=== PATIENT | male | born 1945 | race African-American/Black ===

== ENCOUNTER 2016-06-02 21:52 | Emergency (ER) | payer MEDICARE ==
[2016-06-02 22:42] VITALS: BP 162/74
--- NOTE | 2016-06-02 23:09 | ER Document Report ---
ED Medical Screen (RME) - General Stated Complaint: DIALYSIS PORT PROBLEMS Time seen by provider: 23:07 Mode of Arrival: Ambulatory Information source: Patient Notes: 70-year-old male presents to ED for probable disconnection of his peritoneal port. The site has been covered with a sterile dressing needs to be evaluated. He is still getting hemodialysis 3 times a week but is being trained on the peritoneal dialysis. His dialysis are Tuesday and Tuesday. I have greeted and performed a rapid initial assessment of this patient. A comprehensive ED assessment and evaluation of the patient, analysis of test results and completion of medical decision making process will be conducted by an additional ED providers. TRAVEL OUTSIDE OF THE [place] IN LAST 30 DAYS: No - Related Data Allergies/Adverse Reactions: No Known Allergies Allergy (Verified 04/22/13 20:31) Past Medical History - Past Medical History Cardiac Medical History: Reports: Hx Hypertension Endocrine Medical History: Reports: Hx Diabetes Mellitus Type 1 Musculoskeltal Medical History: Reports Hx Arthritis, Reports Hx Musculoskeletal Trauma Traumatic Medical History: Reports: Hx Fractures - Immunizations Immunizations up to date: Yes Hx Diphtheria, Pertussis, Tetanus Vaccination: Yes - 2009 Physical Exam - Vital signs Vitals: Temp Pulse Resp BP Pulse Ox 98.3 F 64 16 162/74 H 97 06/02/16 22:40 06/02/16 22:40 06/02/16 22:40 06/02/16 22:40 06/02/16 22:40 Course - Vital Signs Vital signs: Temp Pulse Resp BP Pulse Ox 98.3 F 64 16 162/74 H 97 06/02/16 22:40 06/02/16 22:40 06/02/16 22:40 06/02/16 22:40 06/02/16 22:40
== END 2016-06-02 23:19 | disposition left against medical advice (07) ==
LOC: ER 21:52
DX: Z49.02 Encounter for fitting and adjustment of peritoneal dialysis catheter (principal); I10 Essential (primary) hypertension; E10.9 Type 1 diabetes mellitus without complications; Z53.20 Procedure and treatment not carried out because of patient's decision for unspecified reasons
CPT/HCPCS: 99281

== ENCOUNTER 2019-04-16 08:12 | Inpatient (IN) | payer MEDICARE ==
[2019-04-16 09:17] LABS: ABSOLUTE BASOPHILS # (AUTO) 0.1 10^3/uL (0.0-0.2); ABSOLUTE EOSINOPHILS # (AUTO) 0.1 10^3/uL (0.0-0.6); ABSOLUTE LYMPHOCYTES (AUTO) 0.6 10^3/uL (0.5-4.7); ABSOLUTE MONOCYTES (AUTO) 0.3 10^3/uL (0.1-1.4); ABSOLUTE NEUT (AUTO) 5.9 10^3/uL (1.7-8.2); BASOPHILS % (AUTO) 1.4 % (0-2); EOSINOPHILS % (AUTO) 1.3 % (0-6); HEMATOCRIT 30.1 % (37.9-51.0); HEMOGLOBIN 10.1 g/dL (13.5-17.0); LYMPHOCYTES % (AUTO) 8.8 % (13-45); MEAN CORPUSCULAR HEMOGLOBIN 29.9 pg (27.0-33.4); MEAN CORPUSCULAR HGB CONC 33.5 g/dL (32.0-36.0); MEAN CORPUSCULAR VOLUME 89 fl (80-97); PLATELET COUNT 177 10^3/uL (150-450); RED BLOOD COUNT 3.38 10^6/uL (4.35-5.55); RED CELL DISTRIBUTION WIDTH 14.1 % (11.5-14.0); SEGMENTED NEUTROPHILS % (AUTO) 84.5 % (42-78); TOTAL CELLS COUNTED % (AUTO) 100 %; WHITE BLOOD COUNT 6.9 10^3/uL (4.0-10.5)
--- NOTE | 2019-04-16 09:17 | ER Document Report ---
ED General - General Chief Complaint: Altered Mental Status Stated Complaint: ALTERED MENTAL STATUS Time Seen by Provider: 04/16/19 08:32 TRAVEL OUTSIDE OF THE [place] IN LAST 30 DAYS: No - HPI Notes: Patient is a 73-year-old male who presents to the emergency department for evaluation of altered mental status. His and EMS are primary historians, although they are poor historians as well. Evidently the patient got out of bed at approximately 420 this morning. His heard him get out of bed, but she went back to sleep. She came back downstairs after 5 and found him on the floor. She states she believes he must have fallen. She tried to get him up, but he did not speak, and she could not get him up, so she went up to start the car. She evidently called other family members, her son came, and they were able to load him into the car. Patient's and son both admit that he never really said any intelligible words to them, which is very different from his baseline. They brought him to dialysis, and they recommended based on his evaluation that he come to the emergency department for further evaluation. The patient denies any pain, but cannot give me any information in regards to what is happened recently. - Related Data Allergies/Adverse Reactions: No Known Allergies Allergy (Verified 04/22/13 20:31) Past Medical History - General Information source: Relative, Emergency Med Personnel - Social History Smoking Status: Former Smoker Chew tobacco use (# tins/day): No Frequency of alcohol use: None Drug Abuse: None Family History: CAD, DM, Hyperlipidemia, Hypertension, Malignancy Patient has suicidal ideation: No Patient has homicidal ideation: No - Past Medical History Cardiac Medical History: Reports: Hx Hypertension Endocrine Medical History: Reports: Hx Diabetes Mellitus Type 2 Renal/ Medical History: Reports: Hx End Stage Renal Disease - Tuesday dialysis Musculoskeletal Medical History: Reports Hx Arthritis, Reports Hx Muscul oskeletal Trauma Traumatic Medical History: Reports: Hx Fractures - Immunizations Immunizations up to date: Yes Hx Diphtheria, Pertussis, Tetanus Vaccination: Yes - 2009 Review of Systems - Review of Systems -: Yes ROS unobtainable due to patient's medical condition Physical Exam - Vital signs Vitals: Pulse Resp BP Pulse Ox 72 18 200/82 H 98 04/16/19 08:20 04/16/19 08:20 04/16/19 08:20 04/16/19 08:20 - Notes Notes: This is a 73-year-old male who appears his stated age, lying comfortably and calmly in the bed, in no acute distress. Head is normocephalic and atraumatic, pupils are equal round, reactive to light. Oral mucosa is moist. Heart is regular, lungs are clear to auscultation bilaterally. Abdomen soft, nontender, normoactive bowel sounds. AV fistula noted in left upper arm with palpable thrill. Extremities without cyanosis, clubbing, edema. Skin is warm and dry. Patient is awake and alert, but disoriented to person, place, time. He moves all 4 extremities spontaneously. He has no gross facial asymmetry. No pronator drift. Sensation appears to be intact to all 4. Course - Re-evaluation Re-evalutation: 04/16/19 09:17 Patient presents to the emergency department for evaluation. He certainly has altered mental status. Even if he was asymptomatic before his fall at this morning, he did not speak to anyone, so I am concerned that if in case this is a CVA, he is well outside the window for TPA. He may have indeed woken with the symptoms but did not communicate with anyone. Laboratory investigations were ordered. Patient is stable besides being hypertensive at this time. I am not surprised by his hypertension given the fact that he did not have dialysis this morning. Awaiting lab work and further evaluation. Patient is stable at this time, we will continue to monitor. 04/16/19 11:21 Patient still with significant expressive and receptive aphasia. He remains hypertensive, hydralazine ordered. His CT scan was unremarkable. Laboratory investigations failed to reveal anything besides a mild hyper kalemia and a hyperglycemia. This is likely secondary to him not taking his medications. He was given insulin, which would address both issues. Ultimately he needs dialyzed. I spoke with Dr. Hickey, who states that they will be able to dialyze him today. My strong suspicion is that this patient has had a CVA. His CT scan was unremarkable, and again he is outside of the window for any sort of intervention such as TPA. He is given aspirin. I spoke with Dr. Stoddard, and she will accept the patient to [facility] for further care. - Vital Signs Vital signs: Temp Pulse Resp BP Pulse Ox 72 19 200/82 H 100 04/16/19 08:20 04/16/19 08:30 04/16/19 08:20 04/16/19 09:00 - Laboratory Result Diagrams: 04/16/19 08:55 04/16/19 08:55 Laboratory results interpreted by me: 04/16/19 04/16/19 04/16/19 08:55 08:55 09:30 RBC 3.38 L Hgb 10.1 L Hct 30.1 L RDW 14.1 H Lymph % (Auto) 8.8 L Seg Neutrophils % 84.5 H Sodium 135.7 L Potassium 5.2 H Chloride 96 L BUN 67 H Creatinine 9.25 H Est GFR ( Amer) 7 L Est GFR (MDRD) Non-Af 6 L Glucose 460 H* Alkaline Phosphatase 141 H Urine Protein 100 H Urine Glucose (UA) >=500 H Urine Blood SMALL H - Diagnostic Test Radiology reviewed: Image reviewed, Reports reviewed Radiology results interpreted by me: 04/16/19 11:[address] 04/16/19 00:00 IMPRESSION: No acute intracranial abnormality. EVIDENCE OF ACUTE STROKE: NO. - EKG Interpretation by Me Additional EKG results interpreted by me: 04/16/19 11:22 Sinus mechanism with a rate of 74 bpm. Normal axis and intervals. No acute ST changes concerning for ischemia or infarction. No change from prior study of July 14, 2014 Discharge - Discharge Clinical Impression: Altered mental status, Expressive aphasia, Receptive aphasia, Hyperglycemia, Hyperkalemia Condition: Stable Disposition: ADMITTED INPATIENT Admitting Provider: Dr. Stoddard Unit Admitted: [facility]
--- NOTE | 2019-04-16 09:17 | RADIOLOGY REPORT (SQ) ---
EXAM DESCRIPTION: CT HEAD WITHOUT COMPLETED DATE/TIME: 04/16/2019 8:50 am REASON FOR STUDY: ams COMPARISON: CT of the head without contrast from 04/02/2009. TECHNIQUE: Axial images acquired through the brain without intravenous contrast. Images reviewed wi th bone, brain and subdural windows. Additional sagittal and coronal reconstructions were generated. Images stored on PACS. All CT scanners at this facility use dose modulation, iterative reconstruction, and/or weight based d osing when appropriate to reduce radiation dose to as low as reasonably achievable (ALARA). [facility]: Dose Right [facility]: CareDose [facility]: Dose Right [facility]: Teradose 4D [facility]: [employer] RADIATION DOSE: CT Rad equipment meets quality standard of care and radiation dose reduction techniq ues were employed. CTDIvol: 53.2 - 55.2 mGy. DLP: 2182 mGy-cm. LIMITATIONS: None. FINDINGS: The confluent areas of hypoattenuation within the supratentorial periventricular and subco rtical white matter could represent the sequela of chronic microvascular ischemia. There is no acute intracranial hemorrhage, vascular territorial infarct, extra-axial fluid collection, mass effect or midline shift. There is no effacement of the cerebral sulci or basal subarachnoid cisterns. The gra y-white matter differentiation is preserved. The caliber the ventricles is concordant with the degree of sulcation. The globes are aphakic. The orbits are intact. The paranasal sinuses are clear. There is no fractu re of the calvarium. IMPRESSION: No acute intracranial abnormality. EVIDENCE OF ACUTE STROKE: NO. COMMENT: Quality ID # [id number]: Final reports with documentation of one or more dose reduction techniques (e.g., Automated exposure control, adjustment of the mA and/or kV according to patient size, use of iterative reconstruction technique) TECHNICAL DOCUMENTATION: JOB ID: [id number] 2010 [employer]- All Rights Reserved Reading location - IP/workstation name: [email or web address]
[2019-04-16 09:30] LABS: INTERNATIONAL RATION (INR) 1.02; PROTHROMBIN TIME 13.4 SEC (11.4-15.4)
[2019-04-16 09:44] LABS: ALBUMIN 4.2 g/dL (3.5-5.0); ALKALINE PHOSPHATASE 141 U/L (38-126); ANION GAP 13 (5-19); ASPARTATE AMINO TRANSFERASE 22 U/L (17-59); BILIRUBIN,DIRECT 0.1 mg/dL (0.0-0.4); BILIRUBIN,TOTAL 0.6 mg/dL (0.2-1.3); BLOOD UREA NITROGEN 67 mg/dL (7-20); CALCIUM 9.3 mg/dL (8.4-10.2); CARBON DIOXIDE 27 mmol/L (22-30); CHLORIDE 96 mmol/L (98-107); CREATINE KINASE 166 U/L (55-170); POTASSIUM 5.2 mmol/L (3.6-5.0); TOTAL PROTEIN 7.1 g/dL (6.3-8.2)
[2019-04-16 09:55] LABS: CREATINE KINASE MB 3.95 ng/mL (<4.55)
[2019-04-16 10:01] LABS: GLUCOSE 460 mg/dL (75-110); TROPONIN I 0.078 ng/mL
[2019-04-16 10:05] LABS: APPEARANCE,URINE CLEAR; BILIRUBIN,URINE NEGATIVE (NEGATIVE); COLOR,URINE STRAW; GLUCOSE, URINE >=500 mg/dL (NEGATIVE); KETONES,URINE NEGATIVE (NEGATIVE); LEUKOCYTE ESTERASE,URINE NEGATIVE (NEGATIVE); NITRITE,URINE NEGATIVE (NEGATIVE); PROTEIN,URINE 100 mg/dL (NEGATIVE); URINE SPECIFIC GRAVITY 1.009; UROBILINOGEN,URINE NEGATIVE mg/dL (<2.0)
[2019-04-16] MEDS ORDERED: INSULIN REG, HUMAN 100 UNIT/ML 3 ML VIAL (PYX) IV ONE (10:52)
[2019-04-16] MEDS ORDERED: HYDRALAZINE HCL INJ/PF 20 MG/1 ML SDV IV ONE (11:09)
[2019-04-16] MEDS ORDERED: ASPIRIN 325 MG TABLET PO ONE (11:10)
[2019-04-16] MEDS ORDERED: LABETALOL HCL INJ 20 MG/4 ML DISP.SYRIN IV PRN (13:09)
--- NOTE | 2019-04-16 13:21 | EKG REPORT ---
SEVERITY:- BORDERLINE ECG - SINUS RHYTHM PROBABLE LEFT ATRIAL ABNORMALITY : Confirmed by: Jimmy Don MD 16-Apr-2019 13:20:15
[2019-04-16] MEDS ORDERED: NORMAL SALINE 1000 ML 1,000 ML IV PRN (13:47)
[2019-04-16] MEDS ORDERED: DEXTROSE 50%-WATER 25 GM/50 ML DISP.SYRIN IV PRN ×2 (14:04)
[2019-04-16] MEDS ORDERED: GLUCAGON,HUMAN RECOMB 1 MG INJ IM PRN (14:04)
[2019-04-16] MEDS ORDERED: DEXTROSE 40% GEL 15 GM TUBE PO PRN ×2 (14:04)
--- NOTE | 2019-04-16 14:04 | PDOC H&P ---
History of Present Illness Admission Date/PCP: 04/16/19 11:36 CAROLYNN RIVAS MD Patient complains of: Confusion, altered mental status and weakness started at 4 AM today History of Present Illness: CARLENE MENDEZ is a 73 year old male Presents to the emergency room with complaints of being found on the floor this a.m. at around 4 AM. His apparently found him on the floor. She did not know witness what happened. He had gone out with some other family members last night, his sons and he said he was fine with a dropped him back home. It is unclear what happened in the interim until he was found on the floor. His also said he had some urinary incontinence at the time. He does have end-stage renal disease but still make some urine. He remained confused and was unable to follow instructions. The family still managed to get him down to dialysis though as well scheduled for dialysis at 6 AM. He was brought to the emergency department from the dialysis center for further evaluation. On arrival to the ED was found to be hypotensive with a systolic blood pressure of more than 230 Past Medical History Cardiac Medical History: Reports: Hypertension Pulmonary Medical History: Reports: None Endocrine Medical History: Reports: Diabetes Mellitus Type 2 Renal/ Medical History: Reports: End Stage Renal Disease - Tuesday dialysis Musculoskeltal Medical History: Reports: Arthritis Skin Medical History: Reports: None Past Surgical History Past Surgical History: Reports: None Social History Smoking Status: Former Smoker Electronic Cigarette use?: No - Advance Directive Resuscitation Status: Full Code Family History Family History: CAD, DM, Hyperlipidemia, Hypertension, Malignancy Parental Family History Reviewed: Yes - Not pertinent Children Family History Reviewed: Yes Sibling(s) Family History Reviewed.: Yes Medication/Allergy Allergies/Adverse Reactions: No Known Allergies Allergy (Verified 04/22/13 20:31) Review of Systems Constitutional: ABSENT: chills, night sweats Nose, Mouth, and Throat: ABSENT: headache(s), sore throat Cardiovascular: ABSENT: chest pain, dyspnea on exertion, orthropnea Neurological: PRESENT: frequent falls - Xple times as per family Psychiatric: ABSENT: anxiety, depression, homidical ideation, suicidal ideation Hematologic/Lymphatic: ABSENT: easy bleeding, easy bruising Physical Exam Vital Signs: Temp Pulse Resp BP Pulse Ox 98.8 F 78 14 189/76 H 100 04/16/19 11:37 04/16/19 11:24 04/16/19 12:02 04/16/19 12:02 04/16/19 12:02 Intake & Output 04/15/19 04/16/19 04/17/19 06:59 06:59 06:59 Weight 96.1 kg General appearance: PRESENT: no acute distress, well-developed, well-nourished Head exam: PRESENT: atraumatic Eye exam: PRESENT: PERRLA. ABSENT: nystagmus Mouth exam: PRESENT: other - bite tobias on side of tongue Neck exam: PRESENT: full ROM. ABSENT: carotid bruit, JVD, tenderness Respiratory exam: PRESENT: clear to auscultation [place], unlabored. ABSENT: rhonchi, tachypnea Cardiovascular exam: PRESENT: RRR, +S1, +S2 Pulses: PRESENT: normal carotid pulses GI/Abdominal exam: PRESENT: soft. ABSENT: tenderness Rectal exam: PRESENT: deferred Extremities exam: PRESENT: +1 edema. ABSENT: calf tenderness Musculoskeletal exam: PRESENT: ambulatory Neurological exam: PRESENT: alert, awake, other - Expressive aphasia, unable to follow commands, no definite neglect Strength appears to be intact although patient unable to follow precise instructions. ABSENT: oriented to person, oriented to place, oriented to time, oriented to situation, motor sensory deficit Skin exam: PRESENT: other - Scattered bruises Results Laboratory Results: 04/16/19 08:55 04/16/19 08:55 04/16/19 04/16/19 04/16/19 08:55 08:55 09:30 WBC 6.9 RBC 3.38 L Hgb 10.1 L Hct 30.1 L MCV 89 MCH 29.9 MCHC 33.5 RDW 14.1 H Plt Count 177 Seg Neutrophils % 84.5 H Sodium 135.7 L Potassium 5.2 H Chloride 96 L Carbon Dioxide 27 Anion Gap 13 BUN 67 H Creatinine 9.25 H Est GFR ( Amer) 7 L Glucose 460 H* Calcium 9.3 Magnesium 2.2 Total Bilirubin 0.6 AST 22 Alkaline Phosphatase 141 H Total Protein 7.1 Albumin 4.2 Urine Color STRAW Urine Appearance CLEAR Urine pH 7.0 Ur Specific [place] 1.009 Urine Protein 100 H Urine Glucose (UA) >=500 H Urine Ketones NEGATIVE Urine Blood SMALL H Urine Nitrite NEGATIVE Ur Leukocyte Esterase NEGATIVE Urine WBC (Auto) 0 Urine RBC (Auto) 5 04/16/19 04/16/19 08:55 08:55 Creatine Kinase 166 CK-MB (CK-2) 3.95 Troponin I 0.078 Impressions: Head CT 04/16/19 00:00 IMPRESSION: No acute intracranial abnormality. EVIDENCE OF ACUTE STROKE: NO. Assessment and Plan - Diagnosis (1) Acute CVA (cerebrovascular accident) Is this a current diagnosis for this admission?: Yes (2) Hypertensive emergency Is this a current diagnosis for this admission?: Yes (3) ESRD (end stage renal disease) on dialysis Is this a current diagnosis for this admission?: Yes Plan: Nephrology has been consulted for further replacement therapy (4) Type 2 diabetes mellitus, uncontrolled Is this a current diagnosis for this admission?: Yes Plan: He will be placed on SSI along with his basal insulin after review (5) Hyperkalemia Is this a current diagnosis for this admission?: Yes Plan: Secondary to ESRD. This should clear with dialysis (6) Seizure disorder as sequela of cerebrovascular accident Is this a current diagnosis for this admission?: Yes - Plan Summary Summary: Patient appears to have suffered an acute cerebrovascular event. His blood pressure was pretty elevated with a systolic over 200 on initial presentation. Although CT scan shows no acute findings this is not unusual. Patient could also have hypertensive encephalopathy however a symptoms seem to be more aligned with a CVA. According to the family he is symptoms are actually better at the time of my exam. He is obviously out of the window for TPA. He continues to have dysarthria as well as expressive aphasia. Two-dimensional echocardiogram as well as carotid Doppler studies will be obtained. Patient has been started on aspirin. We will also allow for permissive hypertension. Swallowing evalua tion will be done as per protocol and subsequently PT and OT will be obtained. Lipid panel will be checked. I also suspect the patient may have had a seizure associated with the onset of his CVA. He was found on the floor by his family and apparently also had urine incontinence. He also has bite tobias on his tongue laterally. All this point to likely associated seizures. We will go ahead and obtain an EEG and will place him on seizure precautions although I doubt that any further seizures will be seen Home medications as pending as of this time Patient has apparently fallen multiple times leading to multiple bruises Anemia is likely secondary to chronic disease. We will follow-up on H&H - Time Time Spent with patient: 35 or more minutes Medications reviewed and adjusted accordingly: Yes Anticipated discharge: Home Within: within 72 hours - Inpatient Certification Based on my medical assessment, after consideration of the patient's comorb idities, presenting symptoms, or acuity I expect that the services needed warrant INPATIENT care.: Yes Medical Necessity: Risk of Complication if Not Cared For in Hospital, Risk of Diagnosis Which Will Require Inpatient Eval/Care/Monitoring
--- NOTE | 2019-04-16 21:25 | RADIOLOGY REPORT (SQ) ---
EXAM DESCRIPTION: MRI BRAIN WITHOUT INTRAVENOUS CONTRAST CLINICAL HISTORY: Altered mental status, alteration speech, confusion, and fall. COMPARISON: CT head performed the same day TECHNIQUE: MRI of the brain was performed without intravenous contrast, in a multiplanar/multisequence format. FINDINGS: There is moderate cerebral volume loss. There is no intracranial hemorrhage, midline shift, mass effect or acute focal infarct. Scattered periventricular white matter T2 FLAIR signal hyperintensity is nonspecific, but in a pattern most compatible with chronic microvascular ischemic change. More focal area of heterogeneous appearing T2 signal hyperintensity involves the right greater than left aspect of the merlyn. There is a good shukla/white matter differentiation. Normal flow voids are seen in the intracranial arterial circulation. The ventricular system is normal. Limited evaluation of the pituitary fossa, bilateral cerebellopontine angles and bilateral IAC region appear unremarkable. IMPRESSION: No MRI evidence of acute infarct. Findings compatible with moderate cerebral volume loss and chronic microvascular ischemic change are noted. A more heterogeneous area of T2 signal hyperintensity is present within the merlyn. Although findings could represent sequela of remote infarct, this region is incompletely evaluated with noncontrast technique. Consider follow-up with contrast-enhanced exam if clinically indicated for further evaluation.
[2019-04-16] MEDS ORDERED: ATORVASTATIN CALCIUM 40 MG TABLET PO SCH (22:00)
[2019-04-16] MEDS: INSULIN REG, HUMAN 100 UNIT/ML 3 ML VIAL (PYX) SUBCUT SCH (23:00)
[2019-04-16] MEDS: NORMAL SALINE 1000 ML 1,000 ML IV PRN (23:26)
--- NOTE | 2019-04-17 00:31 | PDOC CONSULTATION ---
Consultation Consult Date: 04/16/19 Provider Consulted: BELLE ZHU Consult reason:: ESRD requiring Hemodialysis. History of Present Illness Admission Date/PCP: 04/16/19 11:36 CAROLYNN RIVAS MD History of Present Illness: CARLENE MENDEZ is a 73 year old male with history of end-stage renal disease on maintenance hemodialysis 3 times a week, diabetes mellitus type 2 and hypertension who was brought into the emergency room today after he was found to have altered mental status. The patient could not really give me any history so the history is in accordance with emergency room records. Apparently the patient was found on the floor by his around 5 AM. Patient was not very responsive. The called her son and he managed to place the patient in the car in route to [facility] for his dialysis this morning. When he presented in [facility] they were advised this bring him to the emergency room for further evaluation before even getting hemodialysis treatment. In the emergency room the patient was found to have expressive and receptive aphasia. His initial evaluation included a CT scan which was unremarkable and an MRI was also negative for any acute infarct. The patient was also hypertensive with blood pressure as high as 206/93 in the emergency room. Patient did not take any of his blood pressure medications given that the patient was supposed to go to dialysis this morning. His potassium is slightly elevated at 5.2. He has a BUN of 67 and creatinine of 9.25. I saw the patient at around 1:20 in the afternoon during dialysis treatment. Patient was awake and was trying to speak really answer questions with sense. Otherwise he denies any complaints including headache, chest pains, dizziness, shortness of breath, nausea, vomiting or diarrhea. He seems to be very stable. His blood pressure continues to be elevated. Past Medical History Cardiac Medical History: Reports: Hyperlipidemia, Hypertension-primary Endocrine Medical History: Reports: Diabetes Mellitus Type 2 Complications of Diabetes: Reports: Autonomic Neuropathy, Retinopathy Renal/ Medical History: Reports: End Stage Renal Disease - Tuesday dialysis Musculoskeltal Medical History: Reports: Arthritis Hematology Medical History: Reports Anemia of Chronic Kidney Disease Past Surgical History Past Surgical History: Reports: None Social History Information Source: [facility] Records Lives with: Spouse/Significant other Smoking Status: Former Smoker Electronic Cigarette use?: No Frequency of Alcohol Use: None Hx Recreational Drug Use: No Drugs: None - Advance Directive Resuscitation Status: Full Code Family History Family History: Chronic Kidney Disease - Brother had kidney transplant Parental Family History Reviewed: Yes Children Family History Reviewed: No Sibling(s) Family History Reviewed.: Yes Medication/Allergy Home Medications: Amlodipine Besylate [Norvasc 10 mg Tablet] 5 mg PO QPM 04/16/19 Amlodipine Besylate [Norvasc 10 mg Tablet] 10 mg PO QAM 04/16/19 Aspirin [Aspirin 81 mg Chewable Tablet] 81 mg PO DAILY 04/16/19 Atorvastatin Calcium [Lipitor 20 mg Tablet] 20 mg PO DAILY 04/16/19 Calcitriol [Rocaltrol 0.5 mcg Capsule] 0.5 mcg PO DAILY 04/16/19 Clonidine HCl [Catapres 0.1 mg Tablet] 0.15 mg PO Q12 04/16/19 Epoetin Kash [Procrit Inj 20,000 Unit/1 ml Vial (Renal)] 20,000 unit INJ ASDIR PRN 04/16/19 Ferrous Sulfate [Feosol 325 mg Tablet] 325 mg PO DAILY 04/16/19 Furosemide [Lasix 80 mg Tablet] 120 mg PO DAILY 04/16/19 Insulin Lispro [Humalog Insulin 100 Unit/1 ml 3 ml Vial] 0 unit SUBCUT .SLD SCALE 04/16/19 Metoprolol Succinate [Toprol Xl 50 mg Tab.sr] 25 mg PO Q12 04/16/19 Sodium Bicarbonate [Sodium Bicarbonate 650 mg Tablet] 650 mg PO BID 04/16/19 Allergies/Adverse Reactions: No Known Allergies Allergy (Verified 04/22/13 20:31) Review of Systems All systems: reviewed and no additional remarkable complaints except as stated Review of Systems: Constitutional: ABSENT: chills, fatigue, fever(s), headache(s), weight gain, weight loss Eyes: ABSENT: visual disturbances Ears: ABSENT: hearing changes Cardiovascular: ABSENT: chest pain, dyspnea on exertion, edema, orthropnea, palpitations Respiratory: ABSENT: cough, dyspnea, hemoptysis Gastrointestinal: ABSENT: abdominal pain, constipation, diarrhea, hematemesis, hematochezia, nausea, vomiting Genitourinary: ABSENT: dysuria, hematuria Musculoskeletal: ABSENT: joint swelling Integumentary: ABSENT: rash, wounds Neurological: ABSENT: abnormal gait,confusion, dizziness, focal weakness, numbness, syncope; patient has aphasia Psychiatric: ABSENT: anxiety, depression Endocrine: ABSENT: cold intolerance, heat intolerance, polydipsia, polyuria Hematologic/Lymphatic: ABSENT: easy bleeding, easy bruising, lymphadenopathy Physical Exam Vital Signs: Temp Pulse Resp BP Pulse Ox 98.8 F 78 14 189/76 H 100 04/16/19 11:37 04/16/19 11:24 04/16/19 12:02 04/16/19 12:02 04/16/19 12:02 Intake & Output 04/15/19 04/16/19 04/17/19 06:59 06:59 06:59 Weight 96.1 kg Vitals during dialysis: Blood pressure 191/86 pulse rate of 70, blood flow rate of 450 mL/min and dialysate flow rate of 800 mL/min Exam: General appearance: No acute distress, cooperative, well-developed, well-nou rished Head exam: PRESENT: atraumatic, normocephalic Eye exam: PRESENT: Conjunctiva [place], EOMI, PERRLA. ABSENT: conjunctival injection, scleral icterus Mouth exam: PRESENT: moist, neck supple, tongue midline Neck exam: PRESENT: full ROM. ABSENT: carotid bruit, JVD, lymphadenopathy, thyromegaly Respiratory exam: PRESENT: clear to auscultation bilaterally. ABSENT: rales, rhonchi, stridor, wheezes Cardiovascular exam: PRESENT: RRR, +S1, +S2. Grade 2/6 systolic murmur Pulses: PRESENT: normal radial pulses, normal dorsalis pedis pulses GI/Abdominal exam: PRESENT: normal bowel sounds, soft. ABSENT: guarding, mass, tenderness Rectal exam: Deferred Extremities exam: PRESENT: full ROM. ABSENT: calf tenderness, pedal edema Musculoskeletal: PRESENT: full ROM. ABSENT: deformity Neurological exam: PRESENT: alert, Awake, Oriented to person, Oriented to place, Oriented to time, reflexes normal, CN II-XII grossly intact. ABSENT: motor sensory deficit Psychiatric exam: PRESENT: appropriate affect, normal mood. ABSENT: homicidal ideation, suicidal ideation Skin exam: PRESENT: intact, dry, warm. ABSENT: rash Results Laboratory Results: 04/16/19 08:55 04/16/19 08:55 04/16/19 04/16/19 04/16/19 08:55 08:55 09:30 WBC 6.9 RBC 3.38 L Hgb 10.1 L Hct 30.1 L MCV 89 MCH 29.9 MCHC 33.5 RDW 14.1 H Plt Count 177 Seg Neutrophils % 84.5 H Sodium 135.7 L Potassium 5.2 H Chloride 96 L Carbon Dioxide 27 Anion Gap 13 BUN 67 H Creatinine 9.25 H Est GFR ( Amer) 7 L Glucose 460 H* Calcium 9.3 Magnesium 2.2 Total Bilirubin 0.6 AST 22 Alkaline Phosphatase 141 H Total Protein 7.1 Albumin 4.2 Urine Color STRAW Urine Appearance CLEAR Urine pH 7.0 Ur Specific Center 1.009 Urine Protein 100 H Urine Glucose (UA) >=500 H Urine Ketones NEGATIVE Urine Blood SMALL H Urine Nitrite NEGATIVE Ur Leukocyte Esterase NEGATIVE Urine WBC (Auto) 0 Urine RBC (Auto) 5 04/16/19 04/16/19 08:55 08:55 Creatine Kinase 166 CK-MB (CK-2) 3.95 Troponin I 0.078 Impressions: Head CT 04/16/19 00:00 IMPRESSION: No acute intracranial abnormality. EVIDENCE OF ACUTE STROKE: NO. Assessment & Plan - Diagnosis (1) Expressive aphasia Is this a current diagnosis for this admission?: Yes Plan: Although the patient's CT scan and MRI are still negative, patient's presentation is consistent with either a TIA or stroke in evolution and the patient warrants to be monitored very closely. (2) ESRD (end stage renal disease) on dialysis Is this a current diagnosis for this admission?: Yes Plan: We will do dialysis today for 3 hours, using the patient's AV fistula, with 2 potassium bath, blood flow rate of 450 mL per minute, dialysate flow rate of 800 mL per minute, ultrafiltration 2 L as tolerated, no heparin and no Procrit. Patient will be monitored throughout dialysis treatment and adjust accordingly. (3) Hypertension Is this a current diagnosis for this admission?: Yes Plan: Needs to resume home medications. (4) Hyperkalemia Is this a current diagnosis for this admission?: Yes Plan: Dialysis today. (5) Diabetes mellitus type 2 in nonobese Is this a current diagnosis for this admission?: Yes Plan: Needs to resume patient's insulin. Defer to hospitalist. - Notes Notes: Thank you very much for this consultation. We will continue to support with hemodialysis while the patient is here in the hospital. - Time Time Spent: 50 to 70 Minutes
[2019-04-17] MEDS: INSULIN REG, HUMAN 100 UNIT/ML 3 ML VIAL (PYX) SUBCUT SCH ×5 (01:55→22:37)
[2019-04-17] MEDS ORDERED: LABETALOL HCL INJ 20 MG/4 ML DISP.SYRIN IV PRN (03:39)
[2019-04-17] MEDS ORDERED: HYDRALAZINE HCL INJ/PF 20 MG/1 ML SDV IV PRN (06:30)
[2019-04-17] MEDS: AMLODIPINE BESYLATE 10 MG TABLET PO SCH (08:21)
[2019-04-17 08:58] LABS: ANION GAP 15 (5-19); CALCIUM 9.3 mg/dL (8.4-10.2); CARBON DIOXIDE 26 mmol/L (22-30); CHLORIDE 97 mmol/L (98-107); GLUCOSE 206 mg/dL (75-110)
[2019-04-17] MEDS: FUROSEMIDE 80 MG TABLET PO SCH (09:22)
[2019-04-17] MEDS: CLONIDINE HCL 0.1 MG TABLET PO SCH ×2 (09:23→22:35)
[2019-04-17] MEDS: SODIUM BICARBONATE 650 MG TABLET PO SCH ×2 (09:23→17:31)
[2019-04-17] MEDS: ASPIRIN 81 MG TABLET, CHEWABLE PO SCH (09:23)
[2019-04-17] MEDS: METOPROLOL SUCCINATE 50 MG TAB.SR.24H PO SCH ×2 (09:24→22:33)
[2019-04-17 09:28] LABS: BLOOD UREA NITROGEN 33 mg/dL (7-20); POTASSIUM 3.7 mmol/L (3.6-5.0)
[2019-04-17] MEDS ORDERED: ASPIRIN 325 MG TABLET, ENT COATED PO SCH (10:00)
--- NOTE | 2019-04-17 12:31 | PDOC PROGRESS REPORT ---
Subjective Progress Note for:: 04/17/19 Subjective:: Patient is doing very well today. He is very much improved in terms of his expressive and receptive aphasia. Today patient is able to communicate very well coherently and appropriately. He said he actually feels much better. He does not seem to have any other deficits. Reason For Visit: ALTERED MENTAL STATUS,EXPRESSIVE APHASIA,RECEPTIVE Physical Exam Vital Signs: Temp Pulse Resp BP Pulse Ox 98.2 F 70 16 188/79 H 98 04/17/19 03:13 04/17/19 08:54 04/17/19 08:54 04/17/19 08:54 04/17/19 08:54 Intake & Output 04/16/19 04/17/19 04/18/19 06:59 06:59 06:59 Intake Total 480 Output Total 2775 Balance -2295 Weight 81.9 kg Exam: General appearance: PRESENT: no acute distress, cooperative, well-developed, well-nourished Head exam: PRESENT: atraumatic, normocephalic Eye exam: PRESENT: conjunctiva pink, PERRLA. ABSENT: scleral icterus Neck exam: ABSENT: JVD Respiratory exam: PRESENT: Normal breath sounds. ABSENT: crackles, rales, rhonchi, unlabored, wheezes Cardiovascular exam: PRESENT: Regular rate rhythm -+S1, +S2. Grade 2/6 systolic murmur GI/Abdominal exam: PRESENT: normal bowel sounds, soft. ABSENT: guarding, mass, tenderness Extremities exam: ABSENT: No edema Neurological exam: PRESENT: alert, awake, oriented to person, place and time. Skin exam: PRESENT: dry, warm, Results Laboratory Results: 04/16/19 08:55 04/17/19 07:22 04/17/19 07:22 Sodium 137.5 Potassium 3.7 D Chloride 97 L Carbon Dioxide 26 Anion Gap 15 BUN 33 H D Creatinine 5.99 H Est GFR ( Amer) 11 L Glucose 206 H Calcium 9.3 04/16/19 04/16/19 04/16/19 08:55 08:55 17:47 Creatine Kinase 166 CK-MB (CK-2) 3.95 Troponin I 0.078 0.112 04/17/19 04/17/19 00:25 07:22 Creatine Kinase CK-MB (CK-2) Troponin I 0.102 0.086 Impressions: Head CT 04/16/19 00:00 IMPRESSION: No acute intracranial abnormality. EVIDENCE OF ACUTE STROKE: NO. Head MRI 04/16/19 00:00 IMPRESSION: No MRI evidence of acute infarct. Findings compatible with moderate cerebral volume loss and chronic microvascular ischemic change are noted. A more heterogeneous area of T2 signal hyperintensity is present within the merlyn. Although findings could represent sequela of remote infarct, this region is incompletely evaluated with noncontrast technique. Consider follow-up with contrast-enhanced exam if clinically indicated for further evaluation. Assessment & Plan - Diagnosis (1) Expressive aphasia Is this a current diagnosis for this admission?: Yes Plan: It appears that the patient may have an episode of TIA manifesting as expressive aphasia which is currently now improved and almost completely resolved. (2) ESRD (end stage renal disease) on dialysis Is this a current diagnosis for this admission?: Yes Plan: His next dialysis will be tomorrow. If he will stay here for what ever reason then we will dialyze him here. However the patient can be discharged [employer] marker tomorrow then he can be dialyzed at [facility] at 10:50 AM but ne eds to be on time. Discussed this with Dr. Ordonez. (3) Hypertension Is this a current diagnosis for this admission?: Yes Plan: Uncontrolled. Patient is just going to start his regular home blood pressure medications today. (4) Hyperkalemia Is this a current diagnosis for this admission?: Yes Plan: Resolved with dialysis. (5) Diabetes mellitus type 2 in nonobese Is this a current diagnosis for this admission?: Yes Plan: Suboptimally controlled. - Time Time with patient: 15-25 minutes
[2019-04-17] MEDS: NORMAL SALINE 1000 ML 1,000 ML IV PRN (14:11)
--- NOTE | 2019-04-17 15:17 | PDOC PROGRESS REPORT ---
Subjective Progress Note for:: 04/17/19 Subjective:: This is 71-year-old male who was brought in due to acute confusion and aphasia. He was admitted for possible CVA versus TIA. No acute event overnight. Patient has improved dramatically. Upon encounter this morning, he is comfortable and appears to be at his baseline mentation. He is very coherent and is AO x3. Denies weakness or numbness or tingling sensation. Reason For Visit: TIA, HYPERTENSIVE URGENCY. Physical Exam Vital Signs: Temp Pulse Resp BP Pulse Ox 98.3 F 97 13 119/91 H 100 04/17/19 12:17 04/17/19 12:17 04/17/19 12:17 04/17/19 12:17 04/17/19 12:17 Intake & Output 04/16/19 04/17/19 04/18/19 06:59 06:59 06:59 Intake Total 480 1000 Output Total 2775 Balance -2295 1000 Weight 180 lb 8.937 oz General appearance: PRESENT: no acute distress, well-developed, well-nourished Head exam: PRESENT: atraumatic, normocephalic Eye exam: PRESENT: conjunctiva pink, EOMI, PERRLA. ABSENT: scleral icterus Ear exam: PRESENT: normal external ear exam Mouth exam: PRESENT: moist, tongue midline Neck exam: ABSENT: carotid bruit, JVD, lymphadenopathy, thyromegaly Respiratory exam: PRESENT: clear to auscultation [place]. ABSENT: rales, rhonchi, wheezes Cardiovascular exam: PRESENT: RRR. ABSENT: diastolic murmur, rubs, systolic murmur Pulses: PRESENT: normal dorsalis pedis pul GI/Abdominal exam: PRESENT: normal bowel sounds, soft. ABSENT: distended, guarding, mass, organolmegaly, rebound, tenderness Rectal exam: PRESENT: deferred Extremities exam: PRESENT: full ROM. ABSENT: calf tenderness, clubbing, pedal edema Neurological exam: PRESENT: alert, awake, oriented to person, oriented to place, oriented to time, oriented to situation, CN II-XII grossly intact. ABSENT: motor sensory deficit Results Laboratory Results: 04/16/19 08:55 04/17/19 07:22 04/17/19 07:22 Sodium 137.5 Potassium 3.7 D Chloride 97 L Carbon Dioxide 26 Anion Gap 15 BUN 33 H D Creatinine 5.99 H Est GFR ( Amer) 11 L Glucose 206 H Calcium 9.3 04/16/19 04/16/19 04/16/19 08:55 08:55 17:47 Creatine Kinase 166 CK-MB (CK-2) 3.95 Troponin I 0.078 0.112 04/17/19 04/17/19 00:25 07:22 Creatine Kinase CK-MB (CK-2) Troponin I 0.102 0.086 Impressions: Head CT 04/16/19 00:00 IMPRESSION: No acute intracranial abnormality. EVIDENCE OF ACUTE STROKE: NO. Head MRI 04/16/19 00:00 IMPRESSION: No MRI evidence of acute infarct. Findings compatible with moderate cerebral volume loss and chronic microvascular ischemic change are noted. A more heterogeneous area of T2 signal hyperintensity is present within the merlyn. Although findings could represent sequela of remote infarct, this region is incompletely evaluated with noncontrast technique. Consider follow-up with contrast-enhanced exam if clinically indicated for further evaluation. Assessment and Plan - Diagnosis (1) TIA (transient ischemic attack) Is this a current diagnosis for this admission?: Yes Plan: Started on aspirin and statin. CT head is negative. MRI showed a non- definitive lesion in the pontine area. Echo and Doppler pending. (2) Expressive aphasia Is this a current diagnosis for this admission?: Yes Plan: Resolved. (3) Diabetes mellitus type 2 in nonobese Is this a current diagnosis for this admission?: Yes (4) ESRD (end stage renal disease) on dialysis Is this a current diagnosis for this admission?: Yes - Plan Summary Summary: Patient appears to have suffered an acute cerebrovascular event. His blood pressure was pretty elevated with a systolic over 200 on initial presentation. Although CT scan shows no acute findings this is not unusual. Patient could also have hypertensive encephalopathy however a symptoms seem to be more aligned with a CVA. According to the family he is symptoms are actually better at the t monico of my exam. He is obviously out of the window for TPA. He continues to have dysarthria as well as expressive aphasia. Two-dimensional echocardiogram as well as carotid Doppler studies will be obtained. Patient has been started on aspirin. We will also allow for permissive hypertension. Swallowing evaluation will be done as per protocol and subsequently PT and OT will be obtained. Lipid panel will be checked. I also suspect the patient may have had a seizure associated with the onset of his CVA. He was found on the floor by his family and apparently also had urine incontinence. He also has bite tobias on his tongue laterally. All this point to likely associated seizures. We will go ahead and obtain an EEG and will place him on seizure precautions although I doubt that any further seizures will be seen Home medications as pending as of this time Patient has apparently fallen multiple times leading to multiple bruises Anemia is likely secondary to chronic disease. We will follow-up on H&H - Time Time Spent with patient: 25-34 minutes
--- NOTE | 2019-04-17 17:27 | CDI QUERY ---
CDI Query CDI Review: Dear Provider: To better reflect your patients severity of illness, morbidity, and resource utilization Please specify and document in the Progress Notes and Discharge Summary if you are monitoring / treating / evaluating any of the following conditions: Query Clinical indicators Please clarify Acute CVA (cerebrovascular accident) TIA (transient ischemic attack) Unable to determine Other Noted in Progress Note 04/17/2019: This is 71-year-old male who was brought in due to acute confusion and aphasia. He was admitted for possible CVA versus TIA. Diagnoses List: TIA (transient ischemic attack) Summary: Patient appears to have suffered an acute cerebrovascular event.He continues to have dysarthria as well as expressive aphasia. Noted in H&P: Diagnoses List: 1) Acute CVA (cerebrovascular accident 6) Seizure disorder as sequela of cerebrovascular accident The terms probable, suspected, likely, possible or still to be ruled out may be used if you are unable to determine the exact nature of a condition. Thank you, Clinical Documentation Physician Advisors CHIN Desai RN, BSN RN [email or web address] Office [phone] Office [phone]
[2019-04-17] MEDS ORDERED: AMLODIPINE BESYLATE 10 MG TABLET PO SCH (18:00)
[2019-04-17] MEDS ORDERED: ATORVASTATIN CALCIUM 20 MG TABLET PO SCH (22:00)
[2019-04-18] MEDS: INSULIN REG, HUMAN 100 UNIT/ML 3 ML VIAL (PYX) SUBCUT SCH ×3 (08:26→17:45)
[2019-04-18] MEDS: AMLODIPINE BESYLATE 10 MG TABLET PO SCH (08:30)
[2019-04-18] MEDS: CLONIDINE HCL 0.1 MG TABLET PO SCH (10:25)
[2019-04-18] MEDS: FUROSEMIDE 80 MG TABLET PO SCH (10:26)
[2019-04-18] MEDS: SODIUM BICARBONATE 650 MG TABLET PO SCH (10:26)
[2019-04-18] MEDS: ASPIRIN 81 MG TABLET, CHEWABLE PO SCH (10:27)
[2019-04-18] MEDS: METOPROLOL SUCCINATE 50 MG TAB.SR.24H PO SCH (10:27)
[2019-04-18] MEDS ORDERED: EPOETIN ALFA-EPBX 2,000 UNIT, EPOETIN ALFA-EPBX 3,000 UNIT in SYRINGE, DISPOSABLE, 1 EACH IV PRN (10:52)
[2019-04-18] MEDS ORDERED: NORMAL SALINE 1000 ML 1,000 ML IV PRN (10:52)
[2019-04-18 12:59] LABS: CHOLESTEROL 165.51 mg/dL (0-200); TRIGLYCERIDES 54 mg/dL (<150)
[2019-04-18 13:10] LABS: DIRECT LDL 78 mg/dL (<100)
[2019-04-18 14:27] LABS: ABSOLUTE EOSINOPHILS # (AUTO) 0.2 10^3/uL (0.0-0.6); ABSOLUTE LYMPHOCYTES (AUTO) 0.9 10^3/uL (0.5-4.7); ABSOLUTE MONOCYTES (AUTO) 0.3 10^3/uL (0.1-1.4); ABSOLUTE NEUT (AUTO) 1.9 10^3/uL (1.7-8.2); BASOPHILS % (AUTO) 1.2 % (0-2); EOSINOPHILS % (AUTO) 6.8 % (0-6); HEMATOCRIT 30.5 % (37.9-51.0); HEMOGLOBIN 10.4 g/dL (13.5-17.0); LYMPHOCYTES % (AUTO) 27.6 % (13-45); MEAN CORPUSCULAR HEMOGLOBIN 30.2 pg (27.0-33.4); MEAN CORPUSCULAR HGB CONC 34.2 g/dL (32.0-36.0); MEAN CORPUSCULAR VOLUME 88 fl (80-97); MONOCYTES % (AUTO) 8.2 % (3-13); PLATELET COUNT 174 10^3/uL (150-450); RED BLOOD COUNT 3.46 10^6/uL (4.35-5.55); RED CELL DISTRIBUTION WIDTH 13.7 % (11.5-14.0); SEGMENTED NEUTROPHILS % (AUTO) 56.2 % (42-78); TOTAL CELLS COUNTED % (AUTO) 100 %; WHITE BLOOD COUNT 3.3 10^3/uL (4.0-10.5)
[2019-04-18 14:30] LABS: ANION GAP 12 (5-19); BLOOD UREA NITROGEN 53 mg/dL (7-20); CALCIUM 8.8 mg/dL (8.4-10.2); CARBON DIOXIDE 26 mmol/L (22-30); CHLORIDE 96 mmol/L (98-107); GLUCOSE 321 mg/dL (75-110)
[2019-04-18 17:43] VITALS: BP 170/69
--- NOTE | 2019-04-18 22:44 | PDOC PROGRESS REPORT ---
Subjective Progress Note for:: 04/18/19 Subjective:: I am seeing the patient during dialysis treatment this afternoon. Patient is doing very well and his dysarthria and aphasia has completely resolved. He does not have any complaints. He is tolerating dialysis well. Reason For Visit: TIA, HYPERTENSIVE URGENCY. Physical Exam Vital Signs: Temp Pulse Resp BP Pulse Ox 97.6 F 64 18 170/69 H 98 04/18/19 06:53 04/18/19 08:00 04/18/19 08:00 04/18/19 08:00 04/18/19 08:00 Intake & Output 04/17/19 04/18/19 04/19/19 06:59 06:59 06:59 Intake Total 480 2520 Output Total 2775 Balance -2295 2520 Weight 81.9 kg 83.5 kg Vitals during dialysis treatment: Blood pressure 174/94, heart rate of 65, blood flow rate of 450 mL/min and dialysate flow rate of 800 mL/min. Exam: General appearance: PRESENT: no acute distress, cooperative, well-developed, well-nourished Head exam: PRESENT: atraumatic, normocephalic Eye exam: PRESENT: conjunctiva slightly pale k, PERRLA. ABSENT: scleral icterus Neck exam: ABSENT: JVD Respiratory exam: PRESENT: Normal breath sounds. ABSENT: crackles, rales, rhonchi, unlabored, wheezes Cardiovascular exam: PRESENT: Regular rate rhythm -+S1, +S2. ABSENT: diastolic murmur, systolic murmur GI/Abdominal exam: PRESENT: normal bowel sounds, soft. ABSENT: guarding, mass, tenderness Extremities exam: ABSENT: No edema Neurological exam: PRESENT: alert, awake, oriented to person, place and time. Skin exam: PRESENT: dry, warm, Results Laboratory Results: 04/16/19 08:55 04/17/19 07:22 04/16/19 04/16/19 04/16/19 08:55 08:55 17:47 Creatine Kinase 166 CK-MB (CK-2) 3.95 Troponin I 0.078 0.112 04/17/19 04/17/19 00:25 07:22 Creatine Kinase CK-MB (CK-2) Troponin I 0.102 0.086 Impressions: Head CT 04/16/19 00:00 IMPRESSION: No acute intracranial abnormality. EVIDENCE OF ACUTE STROKE: NO. Head MRI 04/16/19 00:00 IMPRESSION: No MRI evidence of acute infarct. Findings compatible with moderate cerebral volume loss and chronic microvascular ischemic change are noted. A more heterogeneous area of T2 signal hyperintensity is present within the merlyn. Although findings could represent sequela of remote infarct, this region is incompletely evaluated with noncontrast technique. Consider follow-up with contrast-enhanced exam if clinically indicated for further evaluation. Assessment & Plan - Diagnosis (1) Expressive aphasia Is this a current diagnosis for this admission?: Yes Plan: It appears that the patient may have an episode of TIA manifesting as expressive aphasia which is currently now improved and resolved. (2) ESRD (end stage renal disease) on dialysis Is this a current diagnosis for this admission?: Yes Plan: We will do dialysis today for 3 hours, using the patient's AV fistula, with 2 potassium bath, blood flow rate of 450 mL per minute, dialysate flow rate of 800 mL per minute, ultrafiltration 2 to 2.5 L as tolerated, no heparin and Procrit with 5000 units during dialysis intravenously. Patient is being monitored during dialysis treatment by our dialysis nurse. (3) Hypertension Is this a current diagnosis for this admission?: Yes Plan: Uncontrolled. Continue home blood pressure medications. (4) Hyperkalemia Is this a current diagnosis for this admission?: Yes Plan: Resolved with dialysis. (5) Diabetes mellitus type 2 in nonobese Is this a current diagnosis for this admission?: Yes Plan: Suboptimally controlled. - Notes Notes: From nephrology standpoint patient can be discharged home safely. Patient to resume his normal dialysis schedule at [facility] next Tuesday. - Time Time with patient: 15-25 minutes
--- NOTE | 2019-04-19 00:25 | RADIOLOGY REPORT (SQ) ---
EXAM DESCRIPTION: [facility]: US CAROTID DOPPLER BILATERAL CLINICAL HISTORY: 73 years Male; Acute CVA TECHNIQUE: Grayscale and Doppler (color and pulse) ultrasound of bilateral carotid arteries and the vertebral arteries was performed. Stenosis assessment based on Carotid Artery Stenosis: Dorman-Scale and Doppler US DiagnosisSociety of Radiologists in Ultrasound Consensus Conference; Radiology, Jan 2003, Vol. 229:340-346 COMPARISON: None. FINDINGS: All velocities in cm/sec. Right carotid: Morphology: Calcific plaque at the ICA origin and ECA origin. ICA velocities: Proximal 94/12, distal 109/16 (Normal < 124/40) CCA PSV: Proximal 86, distal 110 ICA/CCA PSV ratio: 1.0 (Normal < 2.0) ECA: PSV 89 Left carotid: Morphology: Marginal calcific plaque in the distal CCA. Focal calcific plaque at the ICA origin ICA velocities: Proximal 68/11, distal 84/15 (Normal < 124/40) CCA PSV: Proximal 101, distal 98 ICA/CCA PSV ratio: 0.9 (Normal < 2.0) ECA: PSV 88 Right vertebral: Antegrade, PSV 53 Left vertebral: Antegrade, PSV 55 IMPRESSION: 1. Atherosclerosis 2. Less than 50% stenosis of the internal carotid arteries 3. Normal antegrade flow in both vertebral arteries
--- NOTE | 2019-04-19 10:58 | PDOC DISCHARGE SUMMARY ---
Impression - Admit/DC Date/PCP Admission Date/Primary Care Provider: 04/16/19 11:36 CAROLYNN RIVAS MD Discharge Date: 04/18/19 - Discharge Diagnosis (1) TIA (transient ischemic attack) Is this a current diagnosis for this admission?: Yes (2) Expressive aphasia Is this a current diagnosis for this admission?: Yes (3) Diabetes mellitus type 2 in nonobese Is this a current diagnosis for this admission?: Yes (4) ESRD (end stage renal disease) on dialysis Is this a current diagnosis for this admission?: Yes - Assessment Summary: Patient appears to have suffered an acute cerebrovascular event. His blood pressure was pretty elevated with a systolic over 200 on initial presentation. Although CT scan shows no acute findings this is not unusual. Patient could also have hypertensive encephalopathy however a symptoms seem to be more aligned with a CVA. According to the family he is symptoms are actually better at the time of my exam. He is obviously out of the window for TPA. He continues to have dysarthria as well as expressive aphasia. Two-dimensional echocardiogram as well as carotid Doppler studies will be obtained. Patient has been started on aspirin. We will also allow for permissive hypertension. Swallowing evaluation will be done as per protocol and subsequently PT and OT will be obtained. Lipid panel will be checked. I also suspect the patient may have had a seizure associated with the onset of his CVA. He was found on the floor by his family and apparently also had urine incontinence. He also has bite tobias on his tongue laterally. All this point to likely associated seizures. We will go ahead and obtain an EEG and will place him on seizure precautions although I doubt that any further seizures will be seen Home medications as pending as of this time Patient has apparently fallen multiple times leading to multiple bruises Anemia is likely secondary to chronic disease. We will follow-up on H&H - Additional Information Resuscitation Status: Full Code Discharge Activity: Activity As Tolerated, Balance Activity w/Rest Referrals: CAROLYNN RIVAS MD [Primary Care Provider] - 04/27/19 2:45 pm Prescriptions: Hydralazine HCl [Apresoline 10 mg Tablet] 10 mg PO Q8H #90 tablet Clopidogrel Bisulfate [Plavix 75 mg Tablet] 75 mg PO DAILY #30 tablet Home Medications: Amlodipine Besylate [Norvasc 10 mg Tablet] 5 mg PO QPM 04/16/19 Amlodipine Besylate [Norvasc 10 mg Tablet] 10 mg PO QAM 04/16/19 Aspirin [Aspirin 81 mg Chewable Tablet] 81 mg PO DAILY 04/16/19 Atorvastatin Calcium [Lipitor 20 mg Tablet] 20 mg PO DAILY 04/16/19 Calcitriol [Rocaltrol 0.5 mcg Capsule] 0.5 mcg PO DAILY 04/16/19 Clonidine HCl [Catapres 0.1 mg Tablet] 0.15 mg PO Q12 04/16/19 Epoetin Kash [Procrit Inj 20,000 Unit/1 ml Vial (Renal)] 20,000 unit INJ ASDIR PRN 04/16/19 Ferrous Sulfate [Feosol 325 mg Tablet] 325 mg PO DAILY 04/16/19 Furosemide [Lasix 80 mg Tablet] 120 mg PO DAILY 04/16/19 Insulin Lispro [Humalog Insulin (Lispro) 100 unit/mL] 0 unit SUBCUT .SLD SCALE 04/16/19 Sodium Bicarbonate [Sodium Bicarbonate 650 mg Tablet] 650 mg PO BID 04/16/19 Clopidogrel Bisulfate [Plavix 75 mg Tablet] 75 mg PO DAILY #30 tablet 04/18/19 Hydralazine HCl [Apresoline 10 mg Tablet] 10 mg PO Q8H #90 tablet 04/19/19 Metoprolol Succinate [Toprol Xl 50 mg Tab.sr] 50 mg PO Q12 #0 04/19/19 History of Present Illiness History of Present Illness: Admitting hospitalist's H&P: Presents to the emergency room with complaints of being found on the floor this a.m. at around 4 AM. His apparently found him on the floor. She did not know witness what happened. He had gone out with some other family members last night, his sons and he said he was fine with a dropped him back home. It is unclear what happened in the interim until he was found on the floor. His also said he had some urinary incontinence at the time. He does have end-stage renal disease but still make some urine. He remained confused and was unable to follow instructions. The family still managed to get him down to dialysis though as well scheduled for dialysis at 6 AM. He was brought to the emergency department from the dialysis center for further evaluation. On arrival to the ED was found to be hypertensive with a systolic blood pressure of more than 230. Hospital Course Hospital Course: This is 71-year-old male with ESRD on dialysis, DM 2, and HTN who was brought in due to acute confusion and aphasia. He was admitted for possible CVA versus TIA. He was started on antiplatelets and statin. Patient has improved dramatically overnight. Confusion and aphasia completely resolved and he went back to his baseline mentation. He is very coherent and is AO x3. No weakness or numbness or tingling sensation. Patient was also seen by nephrology and was also getting dialysis during this course. His blood pressures improved to the 150 systolic is lying on the high side. His metoprolol was increased to 50 mg every 12 on discharge. He will also be started on hydralazine 10 mg 3 times daily. He was counseled on logging his blood pressures and blood sugars at home and close follow-up with PCP for close titration of his antihypertensives and diabetic regimen. Physical Exam Vital Signs: Temp Pulse Resp BP Pulse Ox 97.6 F 64 18 184/75 H 98 04/18/19 16:34 04/18/19 16:34 04/18/19 16:34 04/18/19 16:34 04/18/19 16:34 Intake & Output 04/18/19 04/19/19 04/20/19 06:59 06:59 06:59 Intake Total 2520 240 Output Total 2700 Balance 2520 -2460 Weight 184 lb 1.376 oz General appearance: PRESENT: no acute distress, well-developed, well-nourished Head exam: PRESENT: atraumatic, normocephalic Eye exam: PRESENT: conjunctiva pink, EOMI, PERRLA. ABSENT: scleral icterus Ear exam: PRESENT: normal external ear exam Mouth exam: PRESENT: moist, tongue midline Neck exam: ABSENT: carotid bruit, JVD, lymphadenopathy, thyromegaly Respiratory exam: PRESENT: clear to auscultation gustabo. ABSENT: rales, rhonchi, wheezes Cardiovascular exam: PRESENT: RRR. ABSENT: diastolic murmur, rubs, systolic murmur Pulses: PRESENT: normal dorsalis pedis pul GI/Abdominal exam: PRESENT: normal bowel sounds, soft. ABSENT: distended, guarding, mass, organolmegaly, rebound, tenderness Rectal exam: PRESENT: deferred Extremities exam: PRESENT: full ROM. ABSENT: calf tenderness, clubbing, pedal edema Neurological exam: PRESENT: alert, awake, oriented to person, oriented to place, oriented to time, oriented to situation, CN II-XII grossly intact. ABSENT: motor sensory deficit Results Laboratory Results: WBC 3.3 10^3/uL (4.0-10.5) L 04/18/19 11:25 RBC 3.46 10^6/uL (4.35-5.55) L 04/18/19 11:25 Hgb 10.4 g/dL (13.5-17.0) L 04/18/19 11:25 Hct 30.5 % (37.9-51.0) L 04/18/19 11:25 MCV 88 fl (80-97) 04/18/19 11:25 MCH 30.2 pg (27.0-33.4) 04/18/19 11:25 MCHC 34.2 g/dL (32.0-36.0) 04/18/19 11:25 RDW 13.7 % (11.5-14.0) 04/18/19 11:25 Plt Count 174 10^3/uL (150-450) 04/18/19 11:25 Lymph % (Auto) 27.6 % (13-45) 04/18/19 11:25 Swift % (Auto) 8.2 % (3-13) 04/18/19 11:25 Eos % (Auto) 6.8 % (0-6) H 04/18/19 11:25 Baso % (Auto) 1.2 % (0-2) 04/18/19 11:25 Absolute Neuts (auto) 1.9 10^3/uL (1.7-8.2) 04/18/19 11:25 Absolute Lymphs (auto) 0.9 10^3/uL (0.5-4.7) 04/18/19 11:25 Absolute Monos (auto) 0.3 10^3/uL (0.1-1.4) 04/18/19 11:25 Absolute Eos (auto) 0.2 10^3/uL (0.0-0.6) 04/18/19 11:25 Absolute Basos (auto) 0.0 10^3/uL (0.0-0.2) 04/18/19 11:25 Seg Neutrophils % 56.2 % (42-78) 04/18/19 11:25 PT 13.4 SEC (11.4-15.4) 04/16/19 08:55 INR 1.02 04/16/19 08:55 Sodium 133.7 mmol/L (137-145) L 04/18/19 11:25 Potassium 4.0 mmol/L (3.6-5.0) 04/18/19 11:25 Chloride 96 mmol/L (98-107) L 04/18/19 11:25 Carbon Dioxide 26 mmol/L (22-30) 04/18/19 11:25 Anion Gap 12 (5-19) 04/18/19 11:25 BUN 53 mg/dL (7-20) H 04/18/19 11:25 Creatinine 7.73 mg/dL (0.52-1.25) H 04/18/19 11:25 Est GFR ( Amer) 8 (>60) L 04/18/19 11:25 Est GFR (MDRD) Non-Af 7 (>60) L 04/18/19 11:25 Glucose 321 mg/dL (75-110) H 04/18/19 11:25 POC Glucose 248 mg/dL (70-110) H 04/18/19 15:59 Hemoglobin A1c % 10.5 % (4.7-6.0) H 04/18/19 11:25 Calcium 8.8 mg/dL (8.4-10.2) 04/18/19 11:25 Magnesium 2.2 mg/dL (1.6-2.3) 04/16/19 08:55 Total Bilirubin 0.6 mg/dL (0.2-1.3) 04/16/19 08:55 Direct Bilirubin 0.1 mg/dL (0.0-0.4) 04/16/19 08:55 Neonat Total Bilirubin Not Reportable 04/16/19 08:55 Neonat Direct Bilirubin Not Reportable 04/16/19 08:55 Neonat Indirect Bili Not Reportable 04/16/19 08:55 AST 22 U/L (17-59) 04/16/19 08:55 ALT 17 U/L (<50) 04/16/19 08:55 Alkaline Phosphatase 141 U/L (38-126) H 04/16/19 08:55 Creatine Kinase 166 U/L (55-170) 04/16/19 08:55 CK-MB (CK-2) 3.95 ng/mL (<4.55) 04/16/19 08:55 Troponin I 0.086 ng/mL 04/17/19 07:22 Total Protein 7.1 g/dL (6.3-8.2) 04/16/19 08:55 Albumin 4.2 g/dL (3.5-5.0) 04/16/19 08:55 Triglycerides 54 mg/dL (<150) 04/18/19 11:25 Cholesterol 165.51 mg/dL (0-200) 04/18/19 11:25 LDL Cholesterol Direct 78 mg/dL (<100) 04/18/19 11:25 VLDL Cholesterol 11.0 mg/dL (10-31) 04/18/19 11:25 HDL Cholesterol 71 mg/dL (>40) 04/18/19 11:25 Urine Color STRAW 04/16/19 09:30 Urine Appearance CLEAR 04/16/19 09:30 Urine pH 7.0 (5.0-9.0) 04/16/19 09:30 Ur Specific Candor 1.009 04/16/19 09:30 Urine Protein 100 mg/dL (NEGATIVE) H 04/16/19 09:30 Urine Glucose (UA) >=500 mg/dL (NEGATIVE) H 04/16/19 09:30 Urine Ketones NEGATIVE mg/dL (NEGATIVE) 04/16/19 09:30 Urine Blood SMALL (NEGATIVE) H 04/16/19 09:30 Urine Nitrite NEGATIVE (NEGATIVE) 04/16/19 09:30 Urine Bilirubin NEGATIVE (NEGATIVE) 04/16/19 09:30 Urine Urobilinogen NEGATIVE mg/dL (<2.0) 04/16/19 09:30 Ur Leukocyte Esterase NEGATIVE (NEGATIVE) 04/16/19 09:30 Urine WBC (Auto) 0 /HPF 04/16/19 09:30 Urine RBC (Auto) 5 /HPF 04/16/19 09:30 Urine Mucus (Auto) RARE /LPF 04/16/19 09:30 Urine Ascorbic Acid NEGATIVE (NEGATIVE) 04/16/19 09:30 04/16/19 04/16/19 04/17/19 08:55 17:47 00:25 CK-MB (CK-2) 3.95 Troponin I 0.078 0.112 0.102 04/17/19 07:22 CK-MB (CK-2) Troponin I 0.086 Impressions: Head CT 04/16/19 00:00 IMPRESSION: No acute intracranial abnormality. EVIDENCE OF ACUTE STROKE: NO. Head MRI 04/16/19 00:00 IMPRESSION: No MRI evidence of acute infarct. Findings compatible with moderate cerebral volume loss and chronic microvascular ischemic change are noted. A more heterogeneous area of T2 signal hyperintensity is present within the merlyn. Although findings could represent sequela of remote infarct, this region is incompletely evaluated with noncontrast technique. Consider follow-up with contrast-enhanced exam if clinically indicated for further evaluation. Carotid Doppler Study 04/18/19 00:00 IMPRESSION: 1. Atherosclerosis 2. Less than 50% stenosis of the internal carotid arteries 3. Normal antegrade flow in both vertebral arteries Stroke Is this a Stroke Patient?: Yes Reason(s) for not prescribing Anti-thrombolytic therapy:: Not indicated Stroke Pt being discharged on Anti-coagulation therapy?: Yes Stroke Pt being discharged on Statins?: Yes Acute Heart Failure - Is this a Heart Failure Patient?: No
--- NOTE | 2019-04-19 14:22 | XCELERA REPORT ---
[address] [address] Transthoracic Echocardiogram Report Name: CARLENE MENDEZ Age: 73 yrs Gender: Male : 1945 Patient Status: Inpatient Patient Location: [address] [place], [place] [address] Study Date: 04/18/2019 04:29 PM Height: 68 in Weight: 211 lb BSA: 2.1 m2 Reason For Study: Acute CVA Ordering Physician: NHUNG DIAZ Performed By: Renu Saez Interpretation Summary Poor quality study. No biplane LVEF. Inferior wall poorly seen. AV difficult to see if vegetations. Clinical Dx is stroke. Minimal post. pericardial effusion Calcified aortic root. Three cusps AVwith calcium in Non-Cor cusp, difficult to be sure of vegetations. PPG of AV is 2.0 m/s suggesting mild calcific . perhaps no AR. No MS and no MVP, and no mitral valve vegetations. trace MR with no LA dilatation. Moderate LVH seen IVS 16 mm and PW 17mm in diastole. Normal LVEF, 65-70 % visual estimation. Escept for inferior wall not well seen, there were no regionaal wall motion abnormality. No LV enlargement suspected. Probably no LV apical clot. No ASD. TR jet not seen RH appears grossly not dilated. No RVSP can be extrapolated since no TR jet. Unable to r/o Aortic valve vegetation. If suspect, get DREAD. MMode/2D Measurements & Calculations RVDd: 2.4 cm LVIDd: 5.0 cm FS: 36.8 % Ao root diam: 2.8 cm IVSd: 1.4 cm LVIDs: 3.2 cm EDV(Teich): 118.2 ml LVPWd: 1.3 cm ESV(Teich): 39.7 ml Ao root area: 6.0 cm2 LA dimension: 3.5 cm EF(Teich): 66.4 % Doppler Measurements & Calculations MV E max jose: MV P1/2t max jose: Ao V2 max: LV V1 max P.4 cm/sec 86.9 cm/sec 197.2 cm/sec 4.9 mmHg MV A max jose: MV P1/2t: 63.1 msec Ao max PG: LV V1 max: 107.6 cm/sec MVA(P1/2t): 3.5 cm2 15.6 mmHg 111.1 cm/sec MV E/A: 0.80 MV dec slope: 403.0 cm/sec2 MV dec time: 0.25 sec PA V2 max: MV P1/2t-pr_phl: 102.5 cm/sec 63.1 msec PA max P.2 mmHg I WMSI = 1.00 % Normal = 100 Segments Size X - Cannot 2 - 4 - 1-2 small Interpret 1 - Normal Hypokinetic 3 - AkineticDyskinetic 3-5 moderate 5 - 6-14 large Aneurysmal 15-16 diffuse : NHUNG DIAZ Andre
== END 2019-04-18 18:24 | disposition home or self-care (01) | DRG 69 ==
LOC: ER 08:12 → EH 11:36 → 3S 17:33
PROVIDERS: ADMIT Internal Medicine; ATTEND Internal Medicine
PROC: 5A1D70Z Performance of Urinary Filtration, Intermittent, Less than 6 Hours Per Day (ICD-10-PCS; principal; 2019-04-16)
DX: G45.9 Transient cerebral ischemic attack, unspecified (principal); N18.6 End stage renal disease; R47.01 Aphasia; I12.0 Hypertensive chronic kidney disease with stage 5 chronic kidney disease or end stage renal disease; I16.1 Hypertensive emergency; E11.22 Type 2 diabetes mellitus with diabetic chronic kidney disease; E78.5 Hyperlipidemia, unspecified; E11.43 Type 2 diabetes mellitus with diabetic autonomic (poly)neuropathy; E11.319 Type 2 diabetes mellitus with unspecified diabetic retinopathy without macular edema; D63.1 Anemia in chronic kidney disease; E87.5 Hyperkalemia; E11.65 Type 2 diabetes mellitus with hyperglycemia; R32 Unspecified urinary incontinence; Z79.4 Long term (current) use of insulin; Z79.899 Other long term (current) drug therapy; Z87.891 Personal history of nicotine dependence; Z99.2 Dependence on renal dialysis
CPT/HCPCS: 36415; 70450; 70551; 80048; 80053; 80061; 81001; 82550; 82553; 82962; 83036; 83735; 84484; 85025; 85610; 93005; 93010; 93306; 93880; 96374; 99285; J0360; J1815; J3490; J7030; Q5105

== ENCOUNTER 2019-09-30 21:13 | Emergency (ER) | payer MEDICARE ==
--- NOTE | 2019-09-30 22:56 | RADIOLOGY REPORT (SQ) ---
EXAM DESCRIPTION: XR HAND 3 OR MORE VIEWS COMPLETED DATE/TME: 09/30/2019 22:23 CLINICAL HISTORY: 74 years, Male, Foreign bodies in finger COMPARISON: None. NUMBER OF VIEWS: 3 TECHNIQUE: 3 view right hand LIMITATIONS: None. FINDINGS: Osteopenia. There is an old healed fifth metacarpal fracture. There is also an old healed fracture of the proximal phalanx of the fifth digit. Vascular calcifications. No radiographic evidence for acute fracture or dislocation. No radiopaque foreign body. IMPRESSION: Old fracture deformities of the fifth digit. No acute fracture. copyright 2010 [employer]- All Rights Reserved
--- NOTE | 2019-09-30 23:21 | ER Document Report ---
ED Hand/Wrist Injury - General Chief Complaint: Finger Injury Stated Complaint: FALL/RIGHT HAND INJURY Time Seen by Provider: 09/30/19 22:23 Primary Care Provider: CAROLYNN RIVAS MD [Primary Care Provider] - Follow up as needed Mode of Arrival: Ambulatory Information source: Patient Notes: Patient is a 74-year-old male comes emergency room complaining of a fall. Genoveva ent states that he was walking the neighborhood friend's pit bull was barking and as patient was turning around the dog was charging and he tripped and fell on outstretched hand landing on some gravel. Patient states that the dog did not bite him he just scraped up the fingers on the right hand with that being the worst the right middle then the next worst the ring finger and released the little finger. He was helped to his feet by 3 women and they suggested he come to ER because of the bleeding. Patient has a past medical history significant for dialysis. He denies any other injuries did not hit his head had no loss of consciousness he just scraped up his hands and fingers. TRAVEL OUTSIDE OF THE [place] IN LAST 30 DAYS: No - HPI Injury to: Middle finger, Ring finger, Small finger Onset: Just prior to arrival Where: Home, Outdoors Timing: Still present Quality of pain: Achy Severity: Moderate Pain Level: 3 Context: Other - Mechanical fall - Related Data Allergies/Adverse Reactions: No Known Allergies Allergy (Verified 04/22/13 20:31) Past Medical History - General Information source: Patient - Social History Smoking Status: Never Smoker Cigarette use (# per day): No Chew tobacco use (# tins/day): No Smoking Education Provided: No Frequency of alcohol use: None Drug Abuse: None Lives with: Family Family History: Reviewed & Not Pertinent, CAD, DM, Hyperlipidemia, Hypertension, Malignancy Patient has homicidal ideation: No - Past Medical History Cardiac Medical History: Reports: Hx Hypercholesterolemia, Hx Hypertension Endocrine Medical History: Reports: Hx Diabetes Mellitus Type 2 Renal/ Medical History: Reports: Hx End Stage Renal Disease - Tuesday dialysis Musculoskeletal Medical History: Reports Hx Arthritis, Reports Hx Musculoskeletal Trauma Traumatic Medical History: Reports: Hx Fractures - Immunizations Immunizations up to date: Yes Hx Diphtheria, Pertussis, Tetanus Vaccination: Yes - 2009 Review of Systems - Review of Systems Constitutional: No symptoms reported EENT: No symptoms reported Cardiovascular: No symptoms reported Respiratory: No symptoms reported Gastrointestinal: No symptoms reported Genitourinary: No symptoms reported Male Genitourinary: No symptoms reported Musculoskeletal: No symptoms reported Skin: No symptoms reported Hematologic/Lymphatic: No symptoms reported Neurological/Psychological: See HPI, Other - Abrasion -: Yes All other systems reviewed and negative Physical Exam - Vital signs Vitals: Temp Pulse Resp BP Pulse Ox 98.5 F 80 20 167/90 H 98 09/30/19 21:20 09/30/19 21:20 09/30/19 21:20 09/30/19 21:20 09/30/19 21:20 Interpretation: Normal, Hypertensive - Notes Notes: PHYSICAL EXAMINATION: GENERAL: Well-appearing, well-nourished and in no acute distress. HEAD: Atraumatic, normocephalic. EYES: Pupils equal round and reactive to light, extraocular movements intact, sclera anicteric, conjunctiva are normal. NECK: Normal range of motion, supple without lymphadenopathy LUNGS: Breath sounds clear to auscultation bilaterally and equal. No wheezes rales or rhonchi. HEART: Regular rate and rhythm without murmurs Ao rebound. No masses appreciated. Musculoskeletal: Patient's primary concern is his right hand especially the digits of the third fourth and fifth dorsal aspects all above the PIP. The wor st is the ring middle finger and there is some of the knuckle involved but it is approximately a centimeter and a half I just missing the DIP and this is why it is the finger approximately a centimeter and a half. This is the worst 1 is slightly on the deep side but he has avulsed all of the skin away from the area and just leaving some muscle. Patient has full flexion extension of the finger with no deficits. There is no sign of any tendon while cleaning it up. And patient has good cap refill in nailbeds of the fingers on that hand. He has good ball mill mixer strength as well. On the ring finger patient has a smaller edge it does not include the PIP then it is in between the PIP and the DIP. It is about three fourths of a centimeter high and three fourths of a centimeter wide. It is avulsed skin is well but it is only the dermis and just a reddened area. The final area of the abrasions are on the right little finger there is just a small area between the PIP and the DIP of less than a half a centimeter. And it is just barely the dermal skin removal. No bleeding noted in that area. Again on hands and fingers function as normal. NEUROLOGICAL: Cranial nerves grossly intact. Normal speech, normal gait. Normal sensory, motor exams PSYCH: Normal mood, normal affect. SKIN: See musculoskeletal above for full detail. - General General appearance: Appears well, Alert - HEENT Head: Normocephalic, Atraumatic Eyes: Normal Pupils: PERRL - Respiratory Respiratory status: No respiratory distress Chest status: Nontender Breath sounds: Normal Chest palpation: Normal - Cardiovascular Rhythm: Regular Heart sounds: Normal auscultation Murmur: No - Abdominal Inspection: Normal Distension: No distension Bowel sounds: Normal Tenderness: Nontender Organomegaly: No organomegaly - Back Back: Normal, Nontender - Extremities General upper extremity: Normal inspection, Nontender, Normal color, Normal ROM, Normal temperature General lower extremity: Normal inspection, Nontender, Normal color, Normal ROM, Normal temperature, Normal weight bearing. No: Castro's sign - Neurological Neuro grossly intact: Yes Cognition: Normal Orientation: AAOx4 Amadou Coma Scale Eye Opening: Spontaneous Steens Coma Scale Verbal: Oriented Steens Coma Scale Motor: Obeys Commands Steens Coma Scale Total: 15 Speech: Normal Motor strength normal: LUE, RUE, LLE, RLE Sensory: Normal - Psychological Associated symptoms: Normal affect, Normal mood - Skin Skin Temperature: Warm Skin Moisture: Dry Skin Color: Normal Course - Re-evaluation Re-evalutation: 09/30/19 23:21 Patient did well x-rays were negative for fractures or foreign bodies. The area the middle finger which had a more avulsed area was nothing to suture at this time as we are placing antibiotic cream on it placed him on oral antibiotics as well. He believes his tetanus shot is up-to-date he will check with his installation supervisor tomorrow. I have informed him he is got 3 days to get it. Patient will change out his dressing on his fingers 2 times a day I will write him for some Bactroban ointment. He is to return to ER if he has any concerns or problems. - Vital Signs Vital signs: Temp Pulse Resp BP Pulse Ox 98.5 F 80 20 167/90 H 98 09/30/19 21:20 09/30/19 21:20 09/30/19 21:20 09/30/19 21:20 09/30/19 21:20 Discharge - Discharge Clinical Impression: Multiple abrasions Disposition: HOME, SELF-CARE Instructions: Abrasions ([facility]) Additional Instructions: Given that you have avulsed most of the skin on the finger especially the middle and there is nothing for us to sew up. You have clean wounds and there is no foreign bodies associated with them. You got full function of the finger so there is no tendon involvement. I want you to change the dressing with the Bactroban ointment twice a day for the next 4 to 5 days while also cleaning them. You can take the step antibacterial soap soak your fingers in it for 10 to 15 minutes let it air dry and then apply the antibiotic cream. This will eventually heal on its own. But the pope is to keep wound clean. Should you have any concerns or problems he can return to ER for reevaluation. As we discussed check with your installation supervisor to find when you had your last tetanus shot and you have 3 days to get it in case you have . You can take Tylenol for aching pain. Prescriptions: Mupirocin [Bactroban 2% Ointment 22 gm] 1 applic TP BID #1 tube Cephalexin Monohydrate [Keflex 500 mg Capsule] 500 mg PO BID 5 Days #14 capsule Forms: Elevated Blood Pressure Referrals: CAROLYNN RIVAS MD [Primary Care Provider] - Follow up as needed
[2019-09-30 23:26] VITALS: BP 199/99
== END 2019-09-30 23:30 | disposition home or self-care (01) ==
LOC: ER 21:13
DX: S60.412A Abrasion of right middle finger, initial encounter (principal); S60.414A Abrasion of right ring finger, initial encounter; S60.416A Abrasion of right little finger, initial encounter; W01.0XXA Fall on same level from slipping, tripping and stumbling without subsequent striking against object, initial encounter; I10 Essential (primary) hypertension; E11.9 Type 2 diabetes mellitus without complications
CPT/HCPCS: 99283